=== PATIENT | male | born 1975 | race African-American/Black ===

== ENCOUNTER 2019-08-03 14:47 | Inpatient (IN) | payer OTHER ==
[~2019-08-03] VITALS: Ht 167.6 cm; Wt 71.5 kg
[2019-08-03] MEDS ORDERED: LEVE500T53 PO (15:14)
[2019-08-03] MEDS ORDERED: ENAL20 PO (15:14)
[2019-08-03] MEDS ORDERED: ASPI81 PO (15:14)
[2019-08-03] MEDS ORDERED: SIMV-260 PO (15:14)
[2019-08-03] MEDS ORDERED: CARV3 PO (15:14)
[2019-08-03] MEDS ORDERED: AMLO10TA7 PO (15:14)
[2019-08-03] MEDS ORDERED: HYDR25TA PO (15:14)
[2019-08-03] MEDS ORDERED: CloNIDine HCL 0.2 MG TABLET PO ONE (16:15)
[2019-08-03 16:20] LABS: BASOPHILS % (AUTO) 1.1 % (0.0-2.0); EOSINOPHILS % (AUTO) 1.6 % (1.0-6.0); HEMATOCRIT 43.1 % (41-53); HEMOGLOBIN 14.3 g/dL (13.5-17.5); LYMPHOCYTES # (AUTO) 1.5 K/uL (1.0-4.8); LYMPHOCYTES % (AUTO) 28.7 % (22.0-44.0); MEAN CORPUSCULAR HGB CONC 33.2 G/dL (31.0-37.0); MEAN CORPUSCULAR VOLUME 87 fL (80-100); MONOCYTES # (AUTO) 0.5 K/uL (0.1-1.0); MONOCYTES % (AUTO) 9.5 % (2.0-9.0); NEUTROPHILS # (AUTO) 3.1 K/uL (1.8-7.7); NEUTROPHILS % (AUTO) 59.1 % (40.0-70.0); PLATELET COUNT (AUTO) 171 K/uL (150-450); RED BLOOD CELL COUNT(AUTO) 4.93 MIL/uL (4.50-5.90); RED CELL DISTRIBUTION WIDTH 14.1 % (11.5-14.5)
[2019-08-03 16:36] LABS: INR 1.1 (0.9-1.1); PROTHROMBIN TIME 10.7 SEC (9.4-11.6)
[2019-08-03 16:42] LABS: B-TYPE NATRIURETIC PEPTIDE 18 pg/mL (0-100)
[2019-08-03 16:48] LABS: ANION GAP 11 mmol/L (8-16); CALCIUM, TOTAL 8.9 mg/dL (8.8-10.5); CARBON DIOXIDE 26 mmol/L (22-29); CHLORIDE 110 mmol/L (98-107); CREATININE 1.25 mg/dL (0.60-1.30); GLOMERULAR FILTR. RATE CALC > 60 mL/min (>60); GLUCOSE,RANDOM 79 mg/dL (70-110); SODIUM SERUM 147 mmol/L (136-145); UREA NITROGEN, BLOOD 12 mg/dL (7-18)
[2019-08-03 17:15] LABS: ALANINE AMINOTRANSFERASE 31 U/L (12-78); ALBUMIN 3.5 g/dL (3.4-5.0); ALKALINE PHOSPHATASE 37 U/L (46-116); ASPARTATE AMINOTRANSFERASE 27 U/L (15-37); BILIRUBIN,TOTAL 0.6 mg/dL (0.1-1.0); CREATINE KINASE, TOTAL ONLY 320 U/L (39-308); TOTAL PROTEIN, SERUM 6.7 g/dL (6.4-8.2)
[2019-08-03] MEDS ORDERED: ACETAMINOPHEN 325 MG TABLET PO ONE (18:00)
[2019-08-03] MEDS ORDERED: MAGNESIUM HYDROXIDE SUSPENSION 30 ML UDCUP PO PRN (18:00)
[2019-08-03] MEDS: DOCUSATE SODIUM 100 MG CAPSULE PO SCH (20:20)
[2019-08-03] MEDS: CARVEDILOL 6.25 MG TABLET PO SCH (22:34)
[2019-08-03] MEDS: ACETAMINOPHEN 325 MG TABLET PO PRN (22:34)
[2019-08-04 00:02] VITALS: BP 118/64
[2019-08-04 04:20] LABS: APPEARANCE,URINE CLEAR (CLEAR); BILIRUBIN,URINE NEGATIVE (NEGATIVE); GLUCOSE, URINE (UA) NEGATIVE (NEGATIVE); KETONES,URINE NEGATIVE (NEGATIVE); LEUKOCYTE ESTERASE ,URINE NEGATIVE (NEGATIVE); NITRATE,URINE NEGATIVE (NEGATIVE); OCCULT BLOOD,URINE NEGATIVE (NEGATIVE); PH,URINE 6.5 (5.0-8.0); PROTEIN,URINE NEGATIVE (NEGATIVE); UROBILINOGEN,URINE 0.2 mg/dL (<=1.0)
[2019-08-04 04:53] VITALS: BP 140/84
[2019-08-04] MEDS: ACETAMINOPHEN 325 MG TABLET PO PRN (05:24)
[2019-08-04 07:35] VITALS: BP 141/90
[2019-08-04] MEDS: FAMOTIDINE 20 MG TABLET PO SCH (08:16)
[2019-08-04] MEDS: LISINOPRIL 20 MG TABLET PO SCH (08:16)
[2019-08-04] MEDS: CARVEDILOL 6.25 MG TABLET PO SCH ×2 (08:16→20:24)
[2019-08-04] MEDS: DOCUSATE SODIUM 100 MG CAPSULE PO SCH ×2 (08:16→20:23)
[2019-08-04] MEDS: ASPIRIN 81 MG CHEWABLE TABLET PO SCH (08:16)
[2019-08-04 11:45] VITALS: BP 149/87
[2019-08-04 12:25] LABS: AMPHET/METH SCREEN,URINE NEGATIVE (NEGATIVE); BARBITURATE SCREEN, URINE NEGATIVE (NEGATIVE); BENZODIAZEPINES SCREEN,URINE NEGATIVE (NEGATIVE); CANNABINOID SCREEN,URINE NEGATIVE (NEGATIVE); COCAINE SCREEN,URINE NEGATIVE (NEGATIVE); METHADONE SCREEN, URINE NEGATIVE (NEGATIVE); OPIATE SCREEN,URINE NEGATIVE (NEGATIVE)
[2019-08-04 12:26] LABS: PHENCYCLIDINE SCREEN,URINE NEGATIVE (NEGATIVE)
[2019-08-04 16:20] VITALS: BP 159/101
[2019-08-04 20:27] VITALS: BP 129/82
[2019-08-05 00:17] VITALS: BP 128/73
[2019-08-05 04:24] VITALS: BP 141/78
[2019-08-05] MEDS: DOCUSATE SODIUM 100 MG CAPSULE PO SCH (07:46)
[2019-08-05] MEDS: FAMOTIDINE 20 MG TABLET PO SCH (07:46)
[2019-08-05] MEDS: ASPIRIN 81 MG CHEWABLE TABLET PO SCH (07:46)
[2019-08-05] MEDS: CARVEDILOL 6.25 MG TABLET PO SCH (07:46)
[2019-08-05] MEDS: LISINOPRIL 20 MG TABLET PO SCH (07:46)
[2019-08-05] MEDS: ACETAMINOPHEN 325 MG TABLET PO PRN (07:46)
[2019-08-05 08:30] VITALS: BP 138/66
[2019-08-05] MEDS ORDERED: CARV6 PO (13:29)
[2019-08-05] MEDS ORDERED: LISI-662 PO (13:30)
[2019-08-05 19:30] VITALS: BP 124/77
== END 2019-08-05 20:25 | DRG 305 ==
LOC: EMS 14:51 → EEVIPCON 18:39 → 5N 18:39
PROVIDERS: ADMIT Internal Medicine; ATTEND Internal Medicine
DX: I10 Essential (primary) hypertension (principal); R45.851 Suicidal ideations; E78.00 Pure hypercholesterolemia, unspecified; G40.909 Epilepsy, unspecified, not intractable, without status epilepticus; Z91.14 Patient's other noncompliance with medication regimen
CPT/HCPCS: 80307; 87081; 93005; 93306